=== PATIENT | male | born 1960 | race Caucasian/White ===

== ENCOUNTER 2018-05-23 12:17 | Outpatient (CLI) | payer BC ==
[~2018-05-23 12:17] MED LIST: ALBU18HF2 INH; ASPI-1071 PO; CARV3.126 PO; FURO20TA4 PO; LISI2.5T2 PO; NITR0.4T48 SL; SPIR25TA PO
== END 2018-05-23 23:59 | disposition home or self-care (01) ==
LOC: CARD DIAG 12:17
PROVIDERS: ATTEND Internal Medicine Cardiovascular Disease
DX: I08.3 Combined rheumatic disorders of mitral, aortic and tricuspid valves (principal); I50.20 Unspecified systolic (congestive) heart failure; R06.02 Shortness of breath; Z79.82 Long term (current) use of aspirin
CPT/HCPCS: 93306

== ENCOUNTER 2020-11-17 05:41 | Day surgery (SDC) | payer BC ==
[2020-11-16 11:27] LABS: BASOPHILS # (AUTO) 0.1 X10'3 (0-0.2); BASOPHILS % (AUTO) 1.1 % (0-1); EOSINOPHILS # (AUTO) 0.2 X10'3 (0-0.9); EOSINOPHILS % (AUTO) 2.9 % (0-6); HEMATOCRIT 44.5 % (42.0-52.0); LYMPHOCYTES # (AUTO) 1.5 X10'3 (1.1-4.8); LYMPHOCYTES % (AUTO) 26.3 % (21-51); MEAN CORPUSCULAR HEMOGLOBIN 31.3 PG (27.0-31.0); MEAN CORPUSCULAR HGB CONC 33.8 g/dL (33.0-36.5); MEAN CORPUSCULAR VOLUME 92.5 FL (78-98); MEAN PLATELET VOLUME 8.4 FL (7.4-10.4); MONOCYTES # (AUTO) 0.5 X10'3 (0-0.9); MONOCYTES % (AUTO) 9.2 % (2-12); NEUTROPHILS # (AUTO) 3.4 X10'3 (1.8-7.7); NEUTROPHILS % (AUTO) 60.5 % (42-75); PLATELET COUNT 227 X10'3 (140-440); RED BLOOD COUNT 4.81 X10'6 (4.70-6.10); RED CELL DISTRIBUTION WIDTH 13.2 % (11.5-14.5); WHITE BLOOD COUNT 5.5 X10'3 (4.5-11.0)
[2020-11-16 11:38] LABS: PARTIAL THROMBOPLASTIN TIME 29 SECONDS (22-32)
[2020-11-16 11:44] LABS: ALBUMIN 3.8 G/DL (3.4-5.0); ANION GAP 11 (8-16); BLOOD UREA NITROGEN 17 MG/DL (7-18); BUN/CREATININE RATIO 17.5 (5.4-32.0); CALCIUM 8.7 MG/DL (8.5-10.1); CHLORIDE 103 MMOL/L (99-107); CREATININE 0.97 MG/DL (0.60-1.10); GLUCOSE 280 MG/DL (70-104); POTASSIUM 4.2 MMOL/L (3.5-5.1); SODIUM 136 MMOL/L (135-145); TOTAL CARBON DIOXIDE 21.6 MMOL/L (24-32); eGFR 78 ML/MIN
[~2020-11-17] VITALS: Ht 182.9 cm; Wt 93.3 kg
[2020-11-17] VITALS (28 sets, daily range): BP systolic 100–150; BP diastolic 57–95
[2020-11-17] MEDS ORDERED: LORazepam 0.5 MG tablet PO PRN (06:05)
[2020-11-17] MEDS ORDERED: diphenhydrAMINE 25mg capsule PO PRN (06:05)
[2020-11-17] MEDS ORDERED: SACU1TAB4 PO (06:05)
[2020-11-17] MEDS ORDERED: tumeric PO (06:05)
[2020-11-17] MEDS ORDERED: ASPI-1265 PO (06:05)
[2020-11-17] MEDS ORDERED: normal saline 1,000 ML IV SCH (06:05)
[2020-11-17] MEDS ORDERED: LIDOcaine/PRILOcaine 5gm cream TP ONE (06:05)
[2020-11-17] MEDS ORDERED: POTA-82 PO (06:07)
[2020-11-17] MEDS ORDERED: SPIR25TA5 PO (06:21)
[2020-11-17] MEDS ORDERED: verapamil 2.5 mg/ml inj IV ONE (07:25)
[2020-11-17] MEDS ORDERED: nitroGLYCERIN-Tridil 50MG/D5W 250 ML IV ONE (07:25)
[2020-11-17] MEDS ORDERED: midazolam 1 mg/ML 2ml injection ONE (07:25)
[2020-11-17] MEDS ORDERED: heparin 1,000unit/ml 10ml vial 10 ML ONE (07:26)
[2020-11-17] MEDS ORDERED: iohexol 350 MG/ML 50ML vial IV ONE (07:26)
[2020-11-17] MEDS ORDERED: fentaNYL/PF 50MCG/1 ML 2ML syringe ONE (07:26)
[2020-11-17] MEDS ORDERED: iohexol 350MG/ML 100ml bottle IV ONE (07:26)
[2020-11-17] MEDS ORDERED: LIDOcaine 1% (10mg/ml)w/preservative injection 20ml MDV ONE (07:38)
[2020-11-17 08:45] LABS: ISTAT HGB ART 13.6 g/dl (14.0-18.0); ISTAT Hct ART 40 %PCV (42-52); ISTAT O2 SATURATION ARTERIAL 99 % (95-98); ISTAT SOURCE ART
[2020-11-17] MEDS ORDERED: MIDAZolam 1mg/ml 10ml vial IV ONE ×2 (09:45→10:10)
[2020-11-17] MEDS ORDERED: morphine 10mg/ml inj. IV ONE ×2 (09:45→10:10)
[2020-11-17] MEDS ORDERED: normal saline 1000ml 1,000 ML IV SCH (10:10)
== END 2020-11-17 15:30 | disposition home or self-care (01) ==
LOC: SSTAY O 05:41
PROVIDERS: ATTEND Internal Medicine Cardiovascular Disease
DX: R06.02 Shortness of breath (principal); R53.83 Other fatigue; I25.10 Atherosclerotic heart disease of native coronary artery without angina pectoris; I08.3 Combined rheumatic disorders of mitral, aortic and tricuspid valves; I11.0 Hypertensive heart disease with heart failure; I50.22 Chronic systolic (congestive) heart failure; I42.8 Other cardiomyopathies; I27.20 Pulmonary hypertension, unspecified; F17.220 Nicotine dependence, chewing tobacco, uncomplicated; Z72.89 Other problems related to lifestyle; Z79.899 Other long term (current) drug therapy; Z85.72 Personal history of non-Hodgkin lymphomas; Z88.8 Allergy status to other drugs, medicaments and biological substances
CPT/HCPCS: 36415; 76937; 80048; 82803; 85014; 85025; 85610; 85730; 93005; 93312; 93325; 93460; 93567; 94799; 99152; 99153; C1769; C1894; J1644; J2001; J2250; J2270; J3010; J7030; Q0163; Q9967; A4620; A5120; A6258; C1751; J3490

== ENCOUNTER 2020-11-30 09:56 | Outpatient (CLI) | payer BC ==
[~2020-11-30] VITALS: Ht 193 cm; Wt 97.5 kg
[~2020-11-30 09:56] MED LIST changes: -ALBU18HF2 INH; -ASPI-1071 PO; +ASPI-1265 PO; -LISI2.5T2 PO; -NITR0.4T48 SL; +POTA-82 PO; +SACU1TAB4 PO; -SPIR25TA PO; +SPIR25TA5 PO; +tumeric PO
[2020-11-30 10:34] LABS: BASOPHILS # (AUTO) 0.1 X10'3 (0-0.2); BASOPHILS % (AUTO) 1.1 % (0-1); EOSINOPHILS # (AUTO) 0.1 X10'3 (0-0.9); EOSINOPHILS % (AUTO) 2.7 % (0-6); HEMATOCRIT 44.5 % (42.0-52.0); HEMOGLOBIN 15.3 g/dl (14.0-17.9); LYMPHOCYTES # (AUTO) 1.3 X10'3 (1.1-4.8); LYMPHOCYTES % (AUTO) 27.9 % (21-51); MEAN CORPUSCULAR HEMOGLOBIN 31.9 PG (27.0-31.0); MEAN CORPUSCULAR HGB CONC 34.3 g/dL (33.0-36.5); MEAN CORPUSCULAR VOLUME 92.9 FL (78-98); MEAN PLATELET VOLUME 8.1 FL (7.4-10.4); MONOCYTES # (AUTO) 0.4 X10'3 (0-0.9); MONOCYTES % (AUTO) 8.7 % (2-12); NEUTROPHILS # (AUTO) 2.7 X10'3 (1.8-7.7); NEUTROPHILS % (AUTO) 59.6 % (42-75); PLATELET COUNT 263 X10'3 (140-440); RED BLOOD COUNT 4.78 X10'6 (4.70-6.10); RED CELL DISTRIBUTION WIDTH 13.3 % (11.5-14.5); WHITE BLOOD COUNT 4.5 X10'3 (4.5-11.0)
[2020-11-30 10:39] LABS: PARTIAL THROMBOPLASTIN TIME 28 SECONDS (22-32)
[2020-11-30 10:46] LABS: ALANINE AMINOTRANSFERASE 28 U/L (12-78); ALBUMIN 3.8 G/DL (3.4-5.0); ALBUMIN/GLOBULIN RATIO 1.1 (1.1-1.5); ALKALINE PHOSPHATASE 82 IU/L (46-116); ANION GAP 11 (8-16); ASPARTATE AMINO TRANSFERASE 14 U/L (10-37); BILIRUBIN,TOTAL 0.6 MG/DL (0.1-1.0); BLOOD UREA NITROGEN 21 MG/DL (7-18); BUN/CREATININE RATIO 21.4 (5.4-32.0); CALCIUM 8.7 MG/DL (8.5-10.1); CHLORIDE 102 MMOL/L (99-107); CREATININE 0.98 MG/DL (0.60-1.10); GLUCOSE 300 MG/DL (70-104); POTASSIUM 4.1 MMOL/L (3.5-5.1); SODIUM 138 MMOL/L (135-145); TOTAL CARBON DIOXIDE 25.3 MMOL/L (24-32); TOTAL PROTEIN 7.4 G/DL (6.4-8.2); eGFR 78 ML/MIN
[2020-11-30] MEDS ORDERED: IODIXANOL 320 MG/ML INFUS..BTL 100ML IV ONE (11:29)
[2020-11-30] MEDS ORDERED: IODIXANOL 320 MG/ML INFUS..BTL 50ML IV ONE (11:29)
[2020-11-30] MEDS ORDERED: albuterol 2.5 MG/3 ML nebule NEB ONE (13:05)
== END 2020-11-30 23:59 | disposition home or self-care (01) ==
LOC: RAD 09:56
PROVIDERS: ATTEND Internal Medicine Cardiovascular Disease
DX: K57.30 Diverticulosis of large intestine without perforation or abscess without bleeding (principal); I77.4 Celiac artery compression syndrome; I70.0 Atherosclerosis of aorta; M47.816 Spondylosis without myelopathy or radiculopathy, lumbar region; I70.202 Unspecified atherosclerosis of native arteries of extremities, left leg; I25.10 Atherosclerotic heart disease of native coronary artery without angina pectoris; I35.1 Nonrheumatic aortic (valve) insufficiency; R94.2 Abnormal results of pulmonary function studies; Z20.822 Contact with and (suspected) exposure to COVID-19
CPT/HCPCS: 36415; 71046; 71275; 74175; 80053; 85025; 85610; 85730; 93880; 94060; 94727; 94729; 94760; Q9967; U0003

== ENCOUNTER 2020-12-15 13:23 | Outpatient (CLI) | payer BC ==
[~2020-12-15] VITALS: Ht 193 cm; Wt 94.8 kg
[2020-12-15 16:59] VITALS: BP 134/78
--- NOTE | 2020-12-15 17:02 | NUR ---
Patient and his were in the [facility] today to consult with Dr. Geronimo and Dr. Tanner. KCQ12 completed. Walk test completed. Vital signs measured. Patient education reviewed and questions answered.
== END 2020-12-15 23:59 | disposition home or self-care (01) ==
LOC: TAVR 13:23
PROVIDERS: ATTEND Internal Medicine Cardiovascular Disease
DX: I35.0 Nonrheumatic aortic (valve) stenosis (principal); R06.02 Shortness of breath; I65.29 Occlusion and stenosis of unspecified carotid artery